=== PATIENT | male | born 1955 ===

== ENCOUNTER → 2016-07-14 | Outpatient (CLI) | payer BC ==
[~2016-07-14] MED LIST: IPRA1AER2 INH; LOVA20TA4 PO; OMEG10007 PO; OMEP20TA PO; PRD20 PO; PROP60CA5 PO; QVRINH40 INH
[2016-07-14 13:31] LABS: ALT/SGPT 42 U/L (12-78); AST/SGOT 24 U/L (15-37); BLOOD UREA NITROGEN 17 mg/dl (7-18); BUN/CREATININE RATIO 17.3 (10-20); CALCIUM 8.6 mg/dl (8.5-10.1); CARBON DIOXIDE 22 mmol/L (21-32); CHLORIDE 108 mmol/L (98-107); CHOLESTEROL 186 mg/dl (0-200); ESTIMATED AVERAGE GLUCOSE 128 mg/dl; GLUCOSE 108 mg/dl (70-99); HA1C FLAG Normal (Normal); POTASSIUM 3.8 mmol/L (3.5-5.1); SODIUM 141 mmol/L (136-145)
[2016-07-14 13:34] LABS: CHOLESTEROL/HDL RATIO 4.4; HDL CHOLESTEROL 42 mg/dl; LDL CHOLESTEROL CALCULATED 94 mg/dl; TRIGLYCERIDES 250 mg/dl (0-150); VERY LOW DENSITY LIPOPROT CALC 50 mg/dl
== END | disposition home or self-care (01) ==
LOC: C.LABMFLN 16:07
PROVIDERS: ATTEND Family Medicine
DX: E78.00 Pure hypercholesterolemia, unspecified (principal); R73.03 Prediabetes

== ENCOUNTER → 2016-11-12 | Outpatient (CLI) | payer BC ==
[2016-11-12 13:50] LABS: CALCIUM 8.7 mg/dl (8.5-10.1)
[2016-11-12 13:56] LABS: ALT/SGPT 41 U/L (12-78); BLOOD UREA NITROGEN 18 mg/dl (7-18); BUN/CREATININE RATIO 18.5 (10-20); CARBON DIOXIDE 26 mmol/L (21-32); CHLORIDE 105 mmol/L (98-107); CHOLESTEROL 176 mg/dl (0-200); CREATININE 0.99 mg/dl (0.60-1.40); GLUCOSE 108 mg/dl (70-99); POTASSIUM 3.5 mmol/L (3.5-5.1); SODIUM 141 mmol/L (136-145); TRIGLYCERIDES 239 mg/dl (0-150); VERY LOW DENSITY LIPOPROT CALC 48 mg/dl
[2016-11-12 13:59] LABS: ALB/GLOB RATIO 1.2 (0.9-2); ALKALINE PHOSPHATASE 62 U/L (45-117); AST/SGOT 23 U/L (15-37); CHOLESTEROL/HDL RATIO 4.2; HDL CHOLESTEROL 42 mg/dl; LDL CHOLESTEROL CALCULATED 86 mg/dl
[2016-11-12 14:17] LABS: ESTIMATED AVERAGE GLUCOSE 134 mg/dl; HA1C FLAG Normal (Normal)
== END | disposition home or self-care (01) ==
LOC: C.LABMFLN 06:56
PROVIDERS: ATTEND Family Medicine
DX: E78.00 Pure hypercholesterolemia, unspecified (principal); I10 Essential (primary) hypertension

== ENCOUNTER 2017-01-12 09:10 | Observation (INO) | payer BC, OTHER ==
[~2017-01-12] VITALS: Ht 200.7 cm; Wt 140.5 kg
[2017-01-12] VITALS (7 sets, daily range): BP systolic 116–130; BP diastolic 69–75; PULSE 80–85; TEMP 36.5–36.9; O2SAT 87–94; Ht 200.7 cm; Wt 140.5 kg
[2017-01-12] MEDS ORDERED: ALBUT/IPRATROP 3MG/0.5MG NEB 3 ML VIAL INH STA (09:31)
[2017-01-12] MEDS ORDERED: SODIUM CHLORIDE 0.9% 1000ML 1,000 ML IV STA (09:31)
[2017-01-12] MEDS ORDERED: PROP60CA5 PO (09:37)
[2017-01-12] MEDS ORDERED: OMEP20TA PO (09:37)
[2017-01-12] MEDS ORDERED: OMEG10007 PO (09:37)
[2017-01-12] MEDS ORDERED: LOVA20TA4 PO (09:37)
--- NOTE | 2017-01-12 09:40 | EMERGENCY ROOM VISIT NOTE ---
History First contact with patient: 09:25 Chief Complaint: COUGH Stated Complaint: COUGH,DIZZINESS,ABDOMINAL CRAMPS Nursing Triage Summary: c/o dry cough for over a month that is not getting better and today things look wavy History of Present Illness The patient is a 61 year old male who presents to the Emergency Room for evaluation of shortness of breath. 1 month worsening cough, shortness of breath and fatigue. Multiple steroids and antibiotics without any improvement. Has been following with PCP for this. Nothing seems to be making it better, time makes it worse. No trauma, injuries, falls. Notes yesterday left lower chest pressure which resolved. Also notes he developed headache yesterday and lightheadedness which he relates to working too hard and getting dehydrated. Associated with periodic wavy vision. No syncope, focal weakness. No blood thinner use. Recent right knee replacement this winter. No history of PEs nor DVTs. No leg swelling. States previous CXR which per his provider was negative. Review of Systems See HPI for pertinent positives & negatives. A total of 8 systems reviewed and were otherwise negative. Past Medical/Surgical History Medical Problems: (1) Acute respiratory failure Social History Smoking Status: Former Smoker Current/Historical Medications Scheduled Fish Oil ([place]-3), 1 CAP PO DAILY Lovastatin (Mevacor), 20 MG PO HS Omeprazole (Omeprazole), 40 MG PO DAILY Propranolol La (Inderal La), 60 MG PO DAILY Physical Exam Vital Signs Date Time Temp Pulse Resp B/P (MAP) Pulse Ox O2 Delivery O2 Flow Rate FiO2 01/12/17 14:30 82 16 115/81 93 Nasal Cannula 2.0 01/12/17 13:43 82 111/76 92 Nasal Cannula 2.0 01/12/17 13:35 94 Nasal Cannula 2.0 01/12/17 13:26 79 01/12/17 13:10 87 Room Air 01/12/17 12:49 87 Room Air 01/12/17 12:49 87 130/80 87 Room Air 01/12/17 11:52 84 16 90 Room Air 01/12/17 11:43 84 18 108/64 92 Room Air 01/12/17 10:52 89 18 130/73 93 Room Air 01/12/17 09:30 115 01/12/17 09:13 36.7 96 20 132/81 93 Room Air Physical Exam GENERAL: Patient is dehydrated appearing and in mild distress. HEENT: No acute trauma, normocephalic atraumatic, mucous membranes moist, no nasal congestion, no scleral icterus. NECK: No stridor, no adenopathy, no meningismus, trachea is midline. LUNGS: Mild dyspnea. Crackles throughout RLL. HEART: Tachy with sitting up. No murmurs, rubs, gallops appreciated. ABDOMEN: Soft, nontender, bowel sounds positive, no masses appreciated, no peritonitis. BACK: No midline tenderness, no CVA tenderness EXTREMITIES: Normal motion all extremities, no cyanosis, no edema. NEUROLOGIC: Alert and oriented, no acute motor or sensory deficits, no focal weakness, cranial nerves grossly intact. SKIN: No rash, no jaundice, no diaphoresis. Medical Decision & Procedures Laboratory Results 01/12/17 09:35 Red Blood Count 5.48, Mean Corpuscular Volume 86.9, Mean Corpuscular Hemoglobin 28.3, Mean Corpuscular Hemoglobin Concent 32.6, Mean Platelet Volume 10.3, Neutrophils (%) (Auto) 81.3, Lymphocytes (%) (Auto) 12.3, Monocytes (%) (Auto) 5.4, Eosinophils (%) (Auto) 0.6, Basophils (%) (Auto) 0.1, Neutrophils # (Auto) 14.97, Lymphocytes # (Auto) 2.27, Monocytes # (Auto) 1.00, Eosinophils # (Auto) 0.11, Basophils # (Auto) 0.02 01/12/17 09:35 Test 01/12/17 09:35 01/12/17 13:25 White Blood Count 18.43 K/uL (4.8-10.8) Red Blood Count 5.48 M/uL (4.7-6.1) Hemoglobin 15.5 g/dL (14.0-18.0) Hematocrit 47.6 % (42-52) Mean Corpuscular Volume 86.9 fL (80-100) Mean Corpuscular Hemoglobin 28.3 pg (25-34) Mean Corpuscular Hemoglobin Concent 32.6 g/dl (32-36) Platelet Count 244 K/uL (130-400) Mean Platelet Volume 10.3 fL (7.4-10.4) Neutrophils (%) (Auto) 81.3 % Lymphocytes (%) (Auto) 12.3 % Monocytes (%) (Auto) 5.4 % Eosinophils (%) (Auto) 0.6 % Basophils (%) (Auto) 0.1 % Neutrophils # (Auto) 14.97 K/uL (1.4-6.5) Lymphocytes # (Auto) 2.27 K/uL (1.2-3.4) Monocytes # (Auto) 1.00 K/uL (0.11-0.59) Eosinophils # (Auto) 0.11 K/uL (0-0.5) Basophils # (Auto) 0.02 K/uL (0-0.2) RDW Standard Deviation 44.6 fL (36.4-46.3) RDW Coefficient of Variation 14.0 % (11.5-14.5) Immature Granulocyte % (Auto) 0.3 % Immature Granulocyte # (Auto) 0.06 K/uL (0.00-0.02) D-Dimer 1210 ug/L FEU (0-500) Anion Gap 6.0 mmol/L (3-11) Est Creatinine Clear Calc Drug Dose 128.6 ml/min Estimated GFR () 96.7 Estimated GFR (Non- 83.5 BUN/Creatinine Ratio 15.8 (10-20) Calcium Level 9.0 mg/dl (8.5-10.1) Magnesium Level 2.1 mg/dl (1.8-2.4) Total Creatine Kinase 112 U/L (39-308) Creatine Kinase MB 0.8 ng/ml (0.5-3.6) Creatine Kinase MB Ratio 0.7 (0-3.0) Troponin I < 0.015 ng/ml (0-0.045) Pro-B-Type Natriuretic Peptide 23 pg/ml (0-900) Chemistry Specimen Hemolysis Lyme Disease IgG Antibody NEG (NEG) Lyme Disease IgM Antibody NEG (NEG) Medications Administered Medications (Trade) Dose Ordered Sig/Geremias Route Start Time Stop Time Status Last Admin Dose Admin Sodium Chloride 1,000 ml @ 999 mls/hr Q1H1M STAT IV 01/12/17 09:31 01/12/17 10:31 DC 01/12/17 09:44 999 MLS/HR Albuterol/ Ipratropium (Duoneb) 3 ml NOW STAT INH 01/12/17 09:31 01/12/17 09:32 DC 01/12/17 09:48 3 ML Hydromorphone HCl (Dilaudid Inj) 1 mg NOW STAT IV 01/12/17 10:04 01/12/17 10:05 DC 01/12/17 10:08 1 MG Albuterol/ Ipratropium (Duoneb) 12 ml ONE ONCE INH 01/12/17 11:30 01/12/17 11:31 DC 01/12/17 11:46 12 ML Methylprednisolone Sodium Succinate (Solu-Medrol IV) 125 mg NOW STAT IV 01/12/17 11:28 01/12/17 11:30 DC 01/12/17 11:41 125 MG Medical Decision Differential: Infectious, Reactive Airway Disease, Pneumonia, Pneumothorax, COPD , CHF, ACS, Pulmonary Embolism, MSK, GI, Dissection, amongst other etiologies entertained. Pleasant 61 yr old male with HTN, DLP, GERD though no lung nor CAD history arrives with several weeks respiratory issues and generalized fatigue. Improved with initial neb though symptoms starting to return then second prolonged neb. IV steroids given. EKG without ischemia. CXR clear. Dimer positive. CT PE done given initial tachy, shob and elevated dimer resulting in negative CT PE study fortunately. Attempted to ambulate though because dyspneic , hypoxic and diaphoretic. No chest pain with this. With him becoming hypoxic I do not feel that he is capable of continued outpatient work-up (especially given fact he's had two rounds steroids and Zpack and Levaquin). Reviewed with patient and and they are agreeable to inpatient work-up thus hospitalist consulted. Medication Reconcilliation Current Medication List: was personally reviewed by me Blood Pressure Screening Patient's blood pressure: Normal blood pressure Impression Primary Impression: Shortness of breath Additional Impressions: Hypoxia Reactive airway disease Departure Information Referrals Azar Khanna M.D. (PCP) Patient Instructions My [facility] Problem Qualifiers
[2017-01-12 09:47] LABS: BASO % 0.1 %; BASO ABS # 0.02 K/uL (0-0.2); COMPLETE YES; EOS % 0.6 %; HEMATOCRIT 47.6 % (42-52); IG% 0.3 %; LYMPH % 12.3 %; LYMPH ABS # 2.27 K/uL (1.2-3.4); MEAN CELL VOLUME 86.9 fL (80-100); MEAN CORPUSCULAR HEMOGLOBIN 28.3 pg (25-34); MEAN CORPUSCULAR HGB CONC 32.6 g/dl (32-36); MEAN PLATELET VOLUME 10.3 fL (7.4-10.4); MONO % 5.4 %; NEUT % 81.3 %; PLATELET COUNT 244 K/uL (130-400); RED BLOOD COUNT 5.48 M/uL (4.7-6.1); WHITE BLOOD COUNT 18.43 K/uL (4.8-10.8)
[2017-01-12] MEDS ORDERED: HYDROmorphone INJ 1 MG/ML SYR IV STA (10:04)
[2017-01-12 10:09] LABS: BLOOD UREA NITROGEN 16 mg/dl (7-18); BUN/CREATININE RATIO 15.8 (10-20); CARBON DIOXIDE 27 mmol/L (21-32); CHLORIDE 106 mmol/L (98-107); CREATININE 0.98 mg/dl (0.60-1.40); GLUCOSE 115 mg/dl (70-99); MAGNESIUM 2.1 mg/dl (1.8-2.4); SODIUM 139 mmol/L (136-145)
--- NOTE | 2017-01-12 10:20 | DIAGNOSTIC IMAGING REPORT ---
SINGLE VIEW CHEST CLINICAL HISTORY: Atypical chest pain. FINDINGS: An AP, portable, upright chest radiograph is obtained. No prior studies are available for comparison at the time of dictation. The examination is degraded by portable technique and patient rotation. The cardiomediastinal silhouette is unremarkable. There is mild elevation of the right hemidiaphragm and bibasilar atelectasis. The lungs and pleural spaces are otherwise clear. No pneumothorax is seen. The bony thorax is grossly intact. IMPRESSION: No acute cardiopulmonary abnormality. Electronically signed by: Azar Xie M.D. 01/12/2017 10:19 AM Dictated Date/Time: 01/12/2017 10:18 AM
[2017-01-12 10:21] LABS: CKMB/CK RATIO 0.7 (0-3.0)
[2017-01-12] MEDS ORDERED: OPTIRAY 320 IV PRN (10:45)
[2017-01-12 10:53] LABS: LYME DISEASE AB IGG NEG (NEG); LYME DISEASE AB IGM NEG (NEG)
--- NOTE | 2017-01-12 10:54 | DIAGNOSTIC IMAGING REPORT ---
CT HEAD WITHOUT CONTRAST (CT) CLINICAL HISTORY: Sudden onset severe headache. Dizziness. COMPARISON STUDY: No previous studies for comparison. TECHNIQUE: Axial CT of the brain is performed from the vertex to the skull base. IV contrast was not administered for this examination. A dose lowering technique was utilized adhering to the principles of ALARA. CT DOSE: 1373.74 mGy.cm FINDINGS: No intra or extra-axial mass lesions are visualized. There is no CT evidence of acute cortical infarction. There is no evidence of midline shift. There is no acute hemorrhage. No calvarial fractures are visualized. There are minor white matter hypodensities likely on a small vessel basis. There is no evidence of pathologic ventricular dilatation. There is no evidence of acute sinusitis. There are chronic sclerotic changes involving the left mastoid. There is mild prominence of the basilar tip. IMPRESSION: 1. Minor nonspecific prominence of the basilar tip. No acute intracranial findings. Electronically signed by: Nigel Ritchie M.D. 01/12/2017 10:53 AM Dictated Date/Time: 01/12/2017 10:50 AM
--- NOTE | 2017-01-12 11:07 | DIAGNOSTIC IMAGING REPORT ---
CHEST CTA for PULMONARY ARTERIES CT DOSE: HISTORY: Atypical chest pain. Cough. TECHNIQUE: Multiaxial CT images of the chest were performed following the intravenous administration of contrast to evaluate the pulmonary arteries. Maximal intensity projection images were also obtained. A dose lowering technique was utilized adhering to the principles of ALARA. COMPARISON STUDY: Chest 01/12/2017. FINDINGS: Normal caliber thoracic aorta with no evidence for dissection. The majority of the segmental and subsegmental pulmonary arteries are suboptimally assessed due to the respiratory motion artifact. The main and lobar pulmonary arteries show no filling defects to suggest pulmonary embolus. No definite filling defects identified within the visualized segmental and subsegmental pulmonary arteries. No mediastinal or hilar lymphadenopathy. No pleural or pericardial effusions. Hepatic steatosis. Low lung volumes. The central airways are patent. No pneumothorax. A few bibasilar linear and patchy densities. The upper lung zones are clear. IMPRESSION: 1. No evidence for pulmonary embolus with limitations as described above. 2. A few bibasilar linear and patchy densities. This favors subsegmental atelectasis. 3. Hepatic steatosis. Electronically signed by: Vipul Lamb M.D. 01/12/2017 11:06 AM Dictated Date/Time: 01/12/2017 10:58 AM
[2017-01-12] MEDS ORDERED: METHYLPREDNISOLONE 125 MG VIAL IV STA (11:28)
[2017-01-12] MEDS ORDERED: ALBUT/IPRATROP 3MG/0.5MG NEB 3 ML VIAL INH ONE (11:30)
--- NOTE | 2017-01-12 13:57 | History and Physical ---
History & Physical Date & Time of Service: Jan 12, 2017 at 13:47 Chief Complaint: Cough,Dizziness,Abdominal Cramps Primary Care Physician: Azar Khanna M.D. History of Present Illness Source: patient, family, clinic records This patient is a pleasant 61-year-old male that presents to emergency department complaining of shortness of breath and a nonproductive cough that has been going on for at least 3 weeks. The patient has seen his primary care provider on 2 separate occasions. He finished a Z-Josh and also a course of Levaquin in addition to prednisone with mild improvement. His symptoms return after he finished the treatment. He denies any known pulmonary disease. He does note a dull chest pain in the middle of his chest. It has been constant since the cough has been going on. He denies any fever or chills. No sick contacts. 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 He received 2 nebulizer treatments in the emergency department. He has had fairly good relief. Past Medical/Surgical History Hypertension Hyperlipidemia GERD Obesity Family History Father of lung cancer and cirrhosis Mother also of lung cancer Social History Smoking Status: Former Smoker (quit smoking 40 years ago) Alcohol Use: none Drug Use: none Marital Status: Housing status: lives with significant other Occupational Status: employed Immunizations History of Influenza Vaccine: Unknown History of Tetanus Vaccine?: Unknown History of Pneumococcal: No History of Hepatitis B Vaccine: Unknown Multi-Drug Resistant Organisms History of MDRO: No Allergies Coded Allergies: Enoxaparin (Verified Adverse Reaction, Intermediate, "BROKE OUT IN SWEAT" , 01/12/17) Home Medications Scheduled Fish Oil ([place]-3), 1 CAP PO DAILY Lovastatin (Mevacor), 20 MG PO HS Omeprazole (Omeprazole), 40 MG PO DAILY Propranolol La (Inderal La), 60 MG PO DAILY Review of Systems 10 system review performed and negative unless noted in HPI or below Physical Exam Vital Signs Date Time Temp Pulse Resp B/P (MAP) Pulse Ox O2 Delivery O2 Flow Rate FiO2 01/12/17 13:43 82 111/76 92 Nasal Cannula 2.0 01/12/17 13:26 79 01/12/17 13:10 87 Room Air 01/12/17 12:49 87 Room Air 01/12/17 12:49 87 130/80 87 Room Air 01/12/17 11:52 84 16 90 Room Air 01/12/17 11:43 84 18 108/64 92 Room Air 01/12/17 10:52 89 18 130/73 93 Room Air 01/12/17 09:30 115 01/12/17 09:13 36.7 96 20 132/81 93 Room Air General Appearance: no apparent distress Head: normocephalic Eyes: EOMI Neck: no JVD Respiratory/Chest: + pertinent finding (faint expiratory wheeze noted. No crackles at the bases.) Cardiovascular: regular rate, rhythm, no murmur, + pertinent finding (no tenderness to palpation over the thorax.) Abdomen/GI: normal bowel sounds, non tender, soft Extremities/Musculoskelatal: no calf tenderness, no pedal edema Neurologic/Psych: no motor/sensory deficits, oriented x 3 Skin: warm/dry Diagnostics Laboratory Results Results Past 24 Hours Test 01/12/17 09:35 01/12/17 13:25 Range/Units White Blood Count 18.43 4.8-10.8 K/uL Red Blood Count 5.48 4.7-6.1 M/uL Hemoglobin 15.5 14.0-18.0 g/dL Hematocrit 47.6 42-52 % Mean Corpuscular Volume 86.9 80-100 fL Mean Corpuscular Hemoglobin 28.3 25-34 pg Mean Corpuscular Hemoglobin Concent 32.6 32-36 g/dl Platelet Count 244 130-400 K/uL Mean Platelet Volume 10.3 7.4-10.4 fL Neutrophils (%) (Auto) 81.3 % Lymphocytes (%) (Auto) 12.3 % Monocytes (%) (Auto) 5.4 % Eosinophils (%) (Auto) 0.6 % Basophils (%) (Auto) 0.1 % Neutrophils # (Auto) 14.97 1.4-6.5 K/uL Lymphocytes # (Auto) 2.27 1.2-3.4 K/uL Monocytes # (Auto) 1.00 0.11-0.59 K/uL Eosinophils # (Auto) 0.11 0-0.5 K/uL Basophils # (Auto) 0.02 0-0.2 K/uL RDW Standard Deviation 44.6 36.4-46.3 fL RDW Coefficient of Variation 14.0 11.5-14.5 % Immature Granulocyte % (Auto) 0.3 % Immature Granulocyte # (Auto) 0.06 0.00-0.02 K/uL D-Dimer 1210 0-500 ug/L FEU Sodium Level 139 136-145 mmol/L Potassium Level 4.0 3.5-5.1 mmol/L Chloride Level 106 98-107 mmol/L Carbon Dioxide Level 27 21-32 mmol/L Anion Gap 6.0 3-11 mmol/L Blood Urea Nitrogen 16 7-18 mg/dl Creatinine 0.98 0.60-1.40 mg/dl Est Creatinine Clear Calc Drug Dose 128.6 ml/min Estimated GFR () 96.7 Estimated GFR (Non- 83.5 BUN/Creatinine Ratio 15.8 10-20 Random Glucose 115 70-99 mg/dl Calcium Level 9.0 8.5-10.1 mg/dl Magnesium Level 2.1 1.8-2.4 mg/dl Total Creatine Kinase 112 39-308 U/L Creatine Kinase MB 0.8 0.5-3.6 ng/ml Creatine Kinase MB Ratio 0.7 0-3.0 Troponin I < 0.015 0-0.045 ng/ml Pro-B-Type Natriuretic Peptide 23 0-900 pg/ml Chemistry Specimen Hemolysis Lyme Disease IgG Antibody NEG NEG Lyme Disease IgM Antibody NEG NEG Diagnostic Radiology CT HEAD WITHOUT CONTRAST (CT) CLINICAL HISTORY: Sudden onset severe headache. Dizziness. COMPARISON STUDY: No previous studies for comparison. TECHNIQUE: Axial CT of the brain is performed from the vertex to the skull base. IV contrast was not administered for this examination. A dose lowering technique was utilized adhering to the principles of ALARA. CT DOSE: 1373.74 mGy.cm FINDINGS: No intra or extra-axial mass lesions are visualized. There is no CT evidence of acute cortical infarction. There is no evidence of midline shift. There is no acute hemorrhage. No calvarial fractures are visualized. There are minor white matter hypodensities likely on a small vessel basis. There is no evidence of pathologic ventricular dilatation. There is no evidence of acute sinusitis. There are chronic sclerotic changes involving the left mastoid. There is mild prominence of the basilar tip. IMPRESSION: 1. Minor nonspecific prominence of the basilar tip. No acute intracranial findings. Electronically signed by: Nigel Ritchie M.D. 01/12/2017 10:53 AM Dictated Date/Time: 01/12/2017 10:50 AM The status of this report is Signed. Draft = Not yet reviewed or approved by Radiologist. Signed = Reviewed and approved by Radiologist. <AttendingPhy></AttendingPhy> <FamilyPhy>Azar Khanna M.D.</FamilyPhy> < PrimaryPhy>Azar Khanna M.D.</PrimaryPhy> <UnitNumber>[id number]</UnitNumber> < VisitNumber>[id number]</VisitNumber> <PatientName>CLARISSA WALLACE</ PatientName> <DateOfBirth>1955</DateOfBirth> <Location>[facility]</Location> < ServiceDate>01/12/17</ServiceDate> <MNE>ESINDI</MNE> <OrderingPhy>Marcellus Bynum M.D.</OrderingPhy> <OrderingPhyMNE CHEST CTA for PULMONARY ARTERIES CT DOSE: HISTORY: Atypical chest pain. Cough. TECHNIQUE: Multiaxial CT images of the chest were performed following the intravenous administration of contrast to evaluate the pulmonary arteries. Maximal intensity projection images were also obtained. A dose lowering technique was utilized adhering to the principles of ALARA. COMPARISON STUDY: Chest 01/12/2017. FINDINGS: Normal caliber thoracic aorta with no evidence for dissection. The majority of the segmental and subsegmental pulmonary arteries are suboptimally assessed due to the respiratory motion artifact. The main and lobar pulmonary arteries show no filling defects to suggest pulmonary embolus. No definite filling defects identified within the visualized segmental and subsegmental pulmonary arteries. No mediastinal or hilar lymphadenopathy. No pleural or pericardial effusions. Hepatic steatosis. Low lung volumes. The central airways are patent. No pneumothorax. A few bibasilar linear and patchy densities. The upper lung zones are clear. IMPRESSION: 1. No evidence for pulmonary embolus with limitations as described above. 2. A few bibasilar linear and patchy densities. This favors subsegmental atelectasis. 3. Hepatic steatosis. Electronically signed by: Vipul Lamb M.D. 01/12/2017 11:06 AM Dictated Date/Time: 01/12/2017 10:58 AM The status of this report is Signed. Draft = Not yet reviewed or approved by Radiologist. Signed = Reviewed and approved by Radiologist. EKG Normal sinus rhythm [address] depressions noted in the lateral leads No prior for comparison Impression Assessment and Plan 61-year-old male presented to the ED with complaints of a nonproductive cough, shortness of breath is failed outpatient treatment. This is likely reactive airway disease secondary to environmental exposures at work, however I cannot completely rule out underlying COPD given a remote smoking history. Acute respiratory failure likely secondary to reactive airway disease -Observ in telemetry -Solu-Medrol 60 mg IV every 8 hour -Duo nebs QID and q2 prn -consider pulmonary consult Atypical chest pain -monitor on tele -daily EKG -cardiac enzymes x 3 -if symptoms worsen/abnormal labs, consider stress test. (pt had normal stress , but many years ago) -should probably be started on ASA 81mg daily if not contraindicated HTN -Continue propranolol extended release 60 mg daily Hyperlipidemia -Continue statin 20 mg daily DVT prophylaxis -allergic to lovenox-->contraindicated -TEDS, SCDs CODE STATUS -LEVEL I FULL CODE Attending Addendum: I have physically seen and examined this patient, have directed the physician assistants medical activities, and agree with the H&P as noted above with the following exceptions: NONE The patient is awake, well-developed and adequately nourished, alert and oriented 3, normocephalic and atraumatic, lying in bed and in no acute distress. HEENT--PERRL, EOMI, mucous membranes and oropharynx dry. Neck--supple, no JVD or bruits, thyroid normal, trachea midline, no adenopathy. Heart--normal S1 and S2, no extra beats, no murmurs, rubs or gallops. Lungs--few scattered wheezes bilaterally, but decreased breath sounds throughout , no respiratory distress, no accessory muscle use. Abdomen--normal bowel sounds and soft, nontender and nondistended, no hernias or masses, no organomegaly, and obese. Extremities--no cyanosis, clubbing or edema. There are good distal pulses b/l. Dermatologic--normal skin turgor, normal color, warm and dry, no abnormal lymph nodes, no rash. Neurologic--cranial nerves II through XII grossly intact, motor and sensory examination normal. Rheumatologic--normal range of motion, nontender, muscles and joints. Psychiatric--normal affect. Assessment and Plan: 1. Acute respiratory failure with hypoxia secondary to reactive airways disease likely on the basis of work exposure to dust and possibly other inhalants--the patient be admitted to the telemetry unit for close oxygen monitoriing. The patient will be admitted to telemetry for serial cardiac enzymes, cardiac rhythm monitoring and a 2-D echocardiogram with Dopplers. Place on Solu-Medrol 60 mg IV every 8 hours. Duo nebs 4 times a day while awake and every 2 hours when necessary. Discussed modification of workplace environment. 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 Start aspirin 81 mg by mouth daily. He is presently on propranolol extended release 60 mg by mouth daily, but may need to be changed to a more selective beta jaylin such as metoprolol tartrate. Level of Care Telemetry Advanced Directives Existing Advance Directive: No Existing Living Will: No Existing Power of Corporate Tax Manager: No Resuscitation Status FULL RESUSCITATION VTE Prophylaxis VTE Risk Assessment Done? Y/N: Yes Risk Level: Low Given or contraindicated: Enoxaparin (Lovenox)SQ Social Service Consult None Apply
[2017-01-12] MEDS ORDERED: ONDANSETRON INJ 2 MG/ML 2 ML VIAL IV PRN (14:15)
[2017-01-12] MEDS ORDERED: ALUMINUM/MAGNESIUM/SIMETH (MAALOX MAX) 30 ML UDC PO PRN (14:15)
[2017-01-12] MEDS ORDERED: ACETAMINOPHEN 325 MG TAB PO PRN (14:15)
[2017-01-12] MEDS ORDERED: IV FLUIDS COMPLETED PRN (14:30)
[2017-01-12] MEDS ORDERED: PNEUMOCOCCAL ADMINISTRATION CHARGE ONE (14:45)
[2017-01-12] MEDS ORDERED: PNEUMOCOCCAL POLYSACCHARIDES 25 MCG/0.5 ML VIAL/SYR IM. ONE (14:45)
[2017-01-12] MEDS: ALBUT/IPRATROP 3MG/0.5MG NEB 3 ML VIAL INH SCH ×2 (16:00→19:11)
[2017-01-12 21:03] LABS: CKMB/CK RATIO 0.8 (0-3.0)
[2017-01-12] MEDS: METHYLPREDNISOLONE IV 60 MG in SYRINGE 0 ML IV SCH (21:14)
[2017-01-12] MEDS: LOVASTATIN 20 MG TAB PO SCH (21:14)
[2017-01-13] VITALS (17 sets, daily range): BP systolic 113–143; BP diastolic 67–88; PULSE 77–114; TEMP 36.3–36.7; O2SAT 91–95
[2017-01-13 04:30] LABS: BASO % 0.1 %; BASO ABS # 0.01 K/uL (0-0.2); COMPLETE YES; HEMATOCRIT 43.9 % (42-52); IG% 0.4 %; LYMPH % 10.9 %; LYMPH ABS # 1.85 K/uL (1.2-3.4); MEAN CELL VOLUME 87.1 fL (80-100); MEAN CORPUSCULAR HEMOGLOBIN 29.8 pg (25-34); MEAN CORPUSCULAR HGB CONC 34.2 g/dl (32-36); MEAN PLATELET VOLUME 10.2 fL (7.4-10.4); MONO % 2.3 %; NEUT % 86.3 %; PLATELET COUNT 234 K/uL (130-400); RED BLOOD COUNT 5.04 M/uL (4.7-6.1)
[2017-01-13 05:15] LABS: BLOOD UREA NITROGEN 19 mg/dl (7-18); BUN/CREATININE RATIO 17.2 (10-20); CALCIUM 8.8 mg/dl (8.5-10.1); CARBON DIOXIDE 27 mmol/L (21-32); CHLORIDE 105 mmol/L (98-107); GLUCOSE 201 mg/dl (70-99); POTASSIUM 4.2 mmol/L (3.5-5.1); SODIUM 138 mmol/L (136-145)
[2017-01-13 05:20] LABS: CKMB/CK RATIO 0.8 (0-3.0)
[2017-01-13] MEDS: METHYLPREDNISOLONE IV 60 MG in SYRINGE 0 ML IV SCH ×2 (05:33→13:26)
[2017-01-13] MEDS: ALBUT/IPRATROP 3MG/0.5MG NEB 3 ML VIAL INH SCH ×4 (07:19→20:54)
[2017-01-13] MEDS: PANTOprazole SOD 40 MG TAB PO SCH (08:48)
[2017-01-13] MEDS: PROPRANOLOL HCL 60 MG LA CAP PO SCH (08:49)
--- NOTE | 2017-01-13 14:40 | Progress Note ---
Subjective Date of Service: Jan 13, 2017. Subjective Pt evaluation today including: conversation w/ patient, conversation w/ family , physical exam, chart review, lab review, review of studies, conversation w/ healthcare network consultant, review of inpatient medication list Sitting up in chair, mild cough, no more sob, on NC O2, He and his consent above environmental allergen caused his acute respirator distress Problem List Medical Problems: (1) Hypoxia Status: Acute (2) Reactive airway disease Status: Acute (3) Shortness of breath Status: Acute Review of Systems Constitutional: No fever, No chills, No sweats, No weight loss, No weakness, No fatigue, No problem reported Eyes: No worsening of vision, No eye pain, No redness, No discharge, No diplopia ENT: No hearing loss, No unusual epistaxis, No nasal symptoms, No sore throat, No tinnitus, No dental problems, No trouble swallowing Respiratory: + cough, No sputum, No wheezing, No shortness of breath, No dyspnea on exertion, No dyspnea at rest, No hemoptysis Cardiac: No chest pain, No orthopnea, No PND, No edema, No claudication, No palpitations Abdomen: No pain, No nausea, No vomiting, No diarrhea, No constipation Musculoskeletal: No joint pain, No muscle pain, No swelling, No calf pain Male : No dysuria, No urinary frequency, No incontinence, No nocturia more than once/night, No slowing stream, No hematuria Neurologic: No memory loss, No paralysis, No weakness, No numbness/tingling, No vertigo, No balance problems Psychiatric: No depression symptoms, No anhedonism, No anxiety, No insomnia, No substance abuse Heme: No abnormal bleeding/bruising, No clotting problems, No swollen lymph nodes, No night sweats Endo: No fatigue, No excessive thirst, No excessive urination Skin: No rash, No itch, No new/changing skin lesions, No color change, No bleeding Objective Vital Signs Date Time Temp Pulse Resp B/P (MAP) Pulse Ox O2 Delivery O2 Flow Rate FiO2 01/13/17 12:00 91 Nasal Cannula 2.0 01/13/17 09:00 98 19 01/13/17 08:46 36.7 103 14 143/86 (105) 95 Nasal Cannula 2.0 01/13/17 08:30 94 Nasal Cannula 2.0 01/13/17 08:00 114 26 8/3/17 07:18 96 16 93 Nasal Cannula 2.0 01/13/17 07:00 98 17 01/13/17 04:00 92 Nasal Cannula 2.0 01/13/17 04:00 36.7 100 20 126/79 (95) 92 Nasal Cannula 2.0 01/12/17 23:59 93 Nasal Cannula 2.0 01/12/17 23:59 36.7 85 20 118/72 (87) 93 Nasal Cannula 2.0 01/12/17 20:00 36.5 84 17 116/69 (85) 92 Nasal Cannula 2.0 01/12/17 20:00 92 Nasal Cannula 2.0 01/12/17 19:11 80 16 90 Nasal Cannula 2.0 01/12/17 16:00 94 Nasal Cannula 2.0 01/12/17 15:22 36.9 81 22 130/75 (93) 92 Nasal Cannula 2.0 Physical Exam General Appearance: WD/WN, no apparent distress, + obese Eyes: normal inspection, PERRL, EOMI, sclerae normal ENT: normal ENT inspection, hearing grossly normal, pharynx normal Neck: supple, no adenopathy, thyroid normal, no JVD, no carotid bruits, trachea midline Respiratory/Chest: chest non-tender, normal breath sounds, no respiratory distress, no accessory muscle use, + decreased breath sounds Cardiovascular: regular rate, rhythm, no edema, no gallop, no JVD, no murmur Abdomen: normal bowel sounds, non tender, soft, no organomegaly, no pulsatile mass Extremities: normal range of motion, non-tender, normal inspection, no pedal edema, no calf tenderness, normal capillary refill, pelvis stable Neurologic/Psychiatric: asp developer II-XII nml as tested, no motor/sensory deficits, alert, normal mood/affect, oriented x 3 Skin: normal color, warm/dry, no rash Lymphatic: no adenopathy Laboratory Results Last 24 Hours Test 01/12/17 20:05 01/13/17 03:48 Total Creatine Kinase 84 U/L 80 U/L Creatine Kinase MB 0.7 ng/ml 0.6 ng/ml Creatine Kinase MB Ratio 0.8 0.8 Troponin I < 0.015 ng/ml < 0.015 ng/ml Hepatitis C Antibody Screen NEG White Blood Count 16.90 K/uL Red Blood Count 5.04 M/uL Hemoglobin 15.0 g/dL Hematocrit 43.9 % Mean Corpuscular Volume 87.1 fL Mean Corpuscular Hemoglobin 29.8 pg Mean Corpuscular Hemoglobin Concent 34.2 g/dl Platelet Count 234 K/uL Mean Platelet Volume 10.2 fL Neutrophils (%) (Auto) 86.3 % Lymphocytes (%) (Auto) 10.9 % Monocytes (%) (Auto) 2.3 % Eosinophils (%) (Auto) 0.0 % Basophils (%) (Auto) 0.1 % Neutrophils # (Auto) 14.58 K/uL Lymphocytes # (Auto) 1.85 K/uL Monocytes # (Auto) 0.39 K/uL Eosinophils # (Auto) 0.00 K/uL Basophils # (Auto) 0.01 K/uL RDW Standard Deviation 44.6 fL RDW Coefficient of Variation 14.0 % Immature Granulocyte % (Auto) 0.4 % Immature Granulocyte # (Auto) 0.07 K/uL Sodium Level 138 mmol/L Potassium Level 4.2 mmol/L Chloride Level 105 mmol/L Carbon Dioxide Level 27 mmol/L Anion Gap 6.0 mmol/L Blood Urea Nitrogen 19 mg/dl Creatinine 1.10 mg/dl Est Creatinine Clear Calc Drug Dose 114.6 ml/min Estimated GFR () 84.1 Estimated GFR (Non- 72.6 BUN/Creatinine Ratio 17.2 Random Glucose 201 mg/dl Calcium Level 8.8 mg/dl Assessment and Plan 61-year-old male admitted to hospital because of the problem in below on 2016 Acute respiratory failure with hypoxia secondary to reactive airways disease likely on the basis of work exposure to dust and possibly other inhalants Discussed modification of workplace environment. 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 Remote history of smoking did report has snoring as needed need to rule out obstructive sleep apnea For now we will taper down Solu-Medrol, continue nebulizer treatment Request pulmonology consult, possible need to arrange pulmonary function test and sleep study as outpatient, all may be needed and internet developer referral for antigen studies Taper oxygen if possible Check TSH 2-D echocardiogram with Dopplers. Start aspirin 81 mg by mouth daily. Hypertension , is presently on propranolol extended release 60 mg by mouth daily , but may need to be changed to a more selective beta jaylin such as metoprolol tartrate Dyslipidemia, continue current medication GI prophylaxis DVT prophylaxis, SCD, no heparin per duct because of allergic to Lovenox Continued [facility] stay due to: multiple IV medications needed Discharge planning: home
[2017-01-13] MEDS: LOVASTATIN 20 MG TAB PO SCH (21:24)
[2017-01-13] MEDS: METHYLPREDNISOLONE IV 40 MG in SYRINGE 0 ML IV SCH (21:36)
[2017-01-14] VITALS (8 sets, daily range): BP systolic 121–135; BP diastolic 74–84; PULSE 65–87; TEMP 36.4–36.7; O2SAT 90–93
[2017-01-14 05:47] LABS: BASO ABS # 0.01 K/uL (0-0.2); COMPLETE YES; HEMATOCRIT 41.6 % (42-52); IG% 0.5 %; LYMPH % 8.7 %; LYMPH ABS # 1.78 K/uL (1.2-3.4); MEAN CELL VOLUME 87.6 fL (80-100); MEAN CORPUSCULAR HEMOGLOBIN 30.1 pg (25-34); MEAN CORPUSCULAR HGB CONC 34.4 g/dl (32-36); MEAN PLATELET VOLUME 10.5 fL (7.4-10.4); MONO % 6.9 %; NEUT % 83.9 %; PLATELET COUNT 262 K/uL (130-400); RED BLOOD COUNT 4.75 M/uL (4.7-6.1); WHITE BLOOD COUNT 20.41 K/uL (4.8-10.8)
[2017-01-14] MEDS: METHYLPREDNISOLONE IV 40 MG in SYRINGE 0 ML IV SCH (06:13)
[2017-01-14 06:17] LABS: BUN/CREATININE RATIO 25.5 (10-20); CALCIUM 8.7 mg/dl (8.5-10.1); CREATININE 1.1 mg/dl (0.60-1.40); MAGNESIUM 2.4 mg/dl (1.8-2.4); POTASSIUM 4.1 mmol/L (3.5-5.1)
[2017-01-14] MEDS: ALBUT/IPRATROP 3MG/0.5MG NEB 3 ML VIAL INH SCH ×3 (07:15→15:31)
[2017-01-14] MEDS: PANTOprazole SOD 40 MG TAB PO SCH (08:30)
[2017-01-14] MEDS: PROPRANOLOL HCL 60 MG LA CAP PO SCH (08:31)
--- NOTE | 2017-01-14 12:00 | ECHOCARDIOGRAM REPORT ---
*NOTICE TO RECEIVING DEMOCRAT AGENCY This information is strictly Confidential and protected under [place] law. [place] law prohibits you from making any further disclosure of this information unless further disclosure is expressly permitted by the written consent of the person to whom it pertains or is authorized by law. A general authorization for the release of medical or other information is not sufficient for this purpose. Hospital accepts no responsibility if the information is made available to any other person, INCLUDING THE PATIENT. Interpretation Summary * Name: CLARISSA WALLACE Study Date: 01/14/2017 06:37 AM BP: 121/74 mmHg * Patient Location: C.2T\S\S230\S\1 HR: 78 * : 1955 (M/d/yyy) Gender: Male Height: 79 in * Age: 61 yrs Ethnicity: DC Weight: 310 lb * Ordering Physician: Marcellus Morfin * Referring Physician: Self, Referred * Performed By: Daria Gresham [facility] * * Reason For Study: DIFFICULTY BREATHING * BSA: 2.7 m2 * -- Conclusions -- * 1. Severely technically limited despite use of definity ultrasound contrast. * 2. Borderline dilated LV with grossly normal LV function. LVEF 50-55%. Cannot exclude regional wall motion abnormalities. * 3. Normal RV size and function. * 4. No apparent significant valvular pathology. * 5. No prior studies for comparison. Procedure Details * A complete two-dimensional transthoracic echocardiogram was performed (2D, M-mode, Doppler and color flow Doppler). * The study was technically difficult. * A contrast injection of Definity was performed to improve assessment of LV function. * Contrast was injected into an intravenous site in the left arm. * One vial of Definity ultrasound contrast was diluted in normal saline to a total volume of 10 ml. A total of '3' ml of solution was administered during imaging. * Lot # [id number] of Definity utilized for procedure. * Expiration date JAN 28. * The attending nurse who injected the contrast agent was EAMON BERRIOS, RN. Left Ventricle * The left ventricle is borderline dilated. * The left ventricular ejection fraction is grossly normal. * Ejection Fraction = 50-55%. * Regional wall motion abnormalities cannot be excluded due to limited visualization. Right Ventricle * The right ventricle is grossly normal size. * The right ventricular systolic function is normal as assessed by tricuspid annular plane systolic excursion (TAPSE) (normal >1.5 cm). Atria * The left atrium is mildly dilated. * The right atrium is mildly dilated. * No ASD detected; PFO is not assessed. Mitral Valve * The mitral valve is grossly normal. * There is no mitral valve stenosis. Tricuspid Valve * The tricuspid valve is not well visualized. * The tricuspid valve is not well visualized, but is grossly normal. * Significant tricuspid regurgitation is absent. Aortic Valve * The aortic valve opens well. * No hemodynamically significant valvular aortic stenosis. * There is no significant aortic regurgitation. Pulmonic Valve * The pulmonary valve is inadequately visualized, but the Doppler data is adequate for interpretation. * Pulmonic stenosis is absent. * There is no significant pulmonary regurgitation. Pericardium/Pleural * There is no pericardial effusion. MMode 2D Measurements and Calculations IVSd 1.8 cm IVSs 1.8 cm LVIDd 5.8 cm LVIDs 5.5 cm LVPWd 1.7 cm LVPWs 1.8 cm IVS/LVPW 1.0 FS 5.2 % EDV(Teich) 166.0 ml ESV(Teich) 146.7 ml EF(Teich) 11.6 % EDV(cubed) 194.3 ml ESV(cubed) 165.3 ml EF(cubed) 14.9 % % IVS thick 1.8 % % LVPW thick 8.5 % LV mass(C)d 493.6 grams LV mass(C)dI 179.8 grams/m\S\2 LV mass(C)s 490.8 grams LV mass(C)sI 178.8 grams/m\S\2 SV(Teich) 19.3 ml SI(Teich) 7.0 ml/m\S\2 SV(cubed) 29.0 ml SI(cubed) 10.6 ml/m\S\2 Ao root diam 2.6 cm Ao root area 5.3 cm\S\2 LA dimension 4.4 cm LA/Ao 1.7 LVOT diam 2.4 cm LVOT area 4.4 cm\S\2 Doppler Measurements and Calculations MV E max crispin 80.9 cm/sec MV A max crispin 100.7 cm/sec MV E/A 0.80 MV P1/2t max crispin 93.1 cm/sec MV P1/2t 78.8 msec MVA(P1/2t) 2.8 cm\S\2 MV dec slope 346.1 cm/sec\S\2 MV dec time 0.25 sec Ao V2 max 120.7 cm/sec Ao max PG 5.8 mmHg Ao max PG (full) 2.1 mmHg MARIA E(V,A) 3.5 cm\S\2 MARIA E(V,D) 3.5 cm\S\2 LV V1 max PG 3.7 mmHg LV V1 max 96.3 cm/sec PA V2 max 103.2 cm/sec PA max PG 4.3 mmHg
--- NOTE | 2017-01-14 12:20 | Pulmonary Consultation ---
History General Date of Service: Jan 14, 2017. Stated Complaint: Acute Respiratory Failure HPI The patient is a 61 year old male who presents to [facility] with complaints of Acute Respiratory Failure. The patient's primary care provider is Azar Khanna M.D.. Mr. Plascencia is a 61 year old male with PMH of hypertension, hyperlipemia, GERD and morbid obesity who presented to [facility] on 01/12/2017 with complaints of worsening shortness of breath, dizziness and midsternal nonradiating chest pain. Patient states that he was in his normal state of health about 6 weeks ago , when he started to have a subjective fever with yellowish productive cough. He saw his PMD, Dr. Azar Khanna who treated him empirically for pneumonia with Z nomi and told him to return if his symptoms did not improve. He returned a week later, with a dry nonproductive hacking cough, worsening dyspnea on exertion and at rest. He was started on a Levoquin, albuterol inhaler and prednisone taper that finished a few days prior to admission. In the ER, his initial VS were T 36.7C. P 96, RR 20, BP 132/81, Pulse 93% on Room air. While in the ER, his SaO2 dropped to 87 %, he was placed on 2L NC and it improved to 94%. Labs were drawn and significant for WBC OF 18, D-dimer of 1210, BNP 23, Troponin within normal limits. CXR as done that showed no cardiopulmonary abnormalities with mild elevation of right hemidiaphragm with bibasilar atelectasis. CTA chest was done which ruled out pulmonary embolism and was read to show bibasilar linear patchy opacities suggestive of subsegmental atelectasis , low lung volumes and heptatic steatosis. CT head showed nonspecific prominence of basilar tip. No acute intracranial findings. EKG showed normal sinus rhythm at [address] depressions noted in later leads. He was admitted to telemetry for shortness of breath and to rule out ACS. He is currently on solumedrol 40 mgq8h down from 60 mg q8h, Ipratropium/Albuterol nebulizer, Propranolol, Lovastatin, Tylenol, Maalox, Ondansetron and Oversol spray. Patient denies any sick contacts or recent travel. 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 He states that he tries to use mask most of the time. He has 3 dogs, several cats and horses at home. He does have some exposure to hay .He has previous exposure to other farm animals, but not recently. He denies symptoms prior to this episode. There are no others at work or at home with similar respiratory symptoms. He denies any known allergies, respiratory infections or childhood asthma. He has history of GERD and denies postnasal drip. He denies any history of nausea, vomiting, diarrhea, constipation or genitourinary symptoms. His states, that he snores a lot during the night and has episodes of witnessed apneas. He has increased weight gain over the last several years. He denies any daytime somnolence or lethargy. He drives at least 2 hours a day for his work and denies any lower extremity edema, rashes or joint pains. Today, patient states he is feeling much better since admission. He is now able to walk around without dyspnea on exertion and his cough has subsided. He is saturating 96% on RA, he has been afebrile and is about 500 ml negative since admission. Historian: patient Complaint Status: improved Review of Systems Constitutional: reports: malaise Eyes: reports: as stated in HPI ENT: reports: as stated in HPI Cardiovascular: reports: as stated in HPI Respiratory: reports: as stated in HPI Gastrointestinal: reports: as stated in HPI Genitourinary - Male: reports: as stated in HPI Musculoskeletal: reports: as stated in HPI Integumentary: reports: as stated in HPI Neurologic: reports: as stated in HPI Psychiatric: reports: as stated in HPI Endocrine: as stated in HPI Hematologic / Lymphatic: as stated in HPI Allergic / Immunologic: as stated in HPI Past Medical History Past Medical History: HTN, HLD, GERD, morbid obesity Past Surgical History: Right total knee replacement 07/2016 Family History Mother in 60s from lung cancer Father from lung cancer and alcoholic liver disease He had 13 siblings. Five are still livingwith lung cancer s/p resection, DM-2. Others are fromMVA, homicide x2, [place], Asphyxiation , and myocardial infarction. Social History Lives with . Has previous history of tobacco use . He smoked about ppd for 5 years, quit in the 70s. He chewed tobacco for several years after that. He denies alcohol or illicit drug use. Hx Tobacco Use In Past Year?: No Smoking Status: Former Smoker (quit smoking 40 years ago) Marital status: Housing status: lives with significant other Occupational Status: employed Immunizations History of Influenza Vaccine: Unknown History of Tetanus Vaccine?: Unknown History of Pneumococcal: No History of Hepatitis B Vaccine: Unknown History of MDRO History of MDRO: No Allergies Coded Allergies: Enoxaparin (Verified Adverse Reaction, Intermediate, "BROKE OUT IN SWEAT" , 01/12/17) Current Medications Reported Home Medications Medications Dose Route/Sig Max Daily Dose Days Date Category Inderal La (Propranolol HCl) 60 Mg Capcr 60 Mg PO DAILY 01/12/17 Reported Omeprazole 20 Mg Tab 40 Mg PO DAILY 90 01/12/17 Reported Mevacor (Lovastatin) 20 Mg Tab 20 Mg PO HS 01/12/17 Reported Hemphill-3 (Fish Oil) 1 Ea Cap 1 Cap PO DAILY 01/12/17 Reported Physical Physical Exam Vital Signs: Date Time Temp Pulse Resp B/P (MAP) Pulse Ox O2 Delivery O2 Flow Rate FiO2 01/14/17 08:00 Room Air 01/14/17 07:15 84 14 91 Nasal Cannula 2.0 01/14/17 07:06 36.4 65 18 132/84 (100) 91 Room Air 01/14/17 04:00 Room Air 90.0 01/14/17 03:58 36.7 85 17 121/74 (90) 90 Room Air 01/14/17 00:00 Room Air 94.0 01/13/17 23:58 36.5 84 18 113/67 (82) 94 Nasal Cannula 2.0 01/13/17 20:54 77 16 91 Nasal Cannula 2.0 01/13/17 20:00 Room Air 92.0 01/13/17 19:04 36.5 87 24 135/78 (97) 92 Room Air 01/13/17 18:22 36.3 90 16 142/88 (106) 94 Nasal Cannula 2.0 01/13/17 16:00 36.5 90 20 120/80 (93) 91 Nasal Cannula 2.0 01/13/17 16:00 91 Nasal Cannula 2.0 01/13/17 15:24 88 16 91 Nasal Cannula 2.0 01/13/17 14:00 92 16 01/13/17 13:12 36.5 94 14 131/84 (100) 92 Nasal Cannula 2.0 01/13/17 12:00 98 19 01/13/17 12:00 91 Nasal Cannula 2.0 General Appearance: WELL-APPEARING, WD/WN, NO APPARENT DISTRESS, obese Head: NORMOCEPHALIC, ATRAUMATIC Eyes: PERRLA, NO DISCHARGE, EOMI, SCLERAE NORMAL, CONJUNCTIVAE NORMAL ENT: NORMAL MOUTH EXAM, NORMAL THROAT EXAM (Mallampati IV) Neck: NORMAL RANGE OF MOTION, NO TENDERNESS, TRACHEA MIDLINE, NO STRIDOR, SUPPLE, NO THYROMEGALY Respiratory: BREATH SOUNDS NORMAL, CLEAR TO AUSCULTATION, NO RESPIRATORY DISTRESS, NO TENDERNESS Cardiovasular: REGULAR RATE/RHYTHM, NORMAL S1S2, NO M/G/R, NORMAL PERIPHERAL PULSES Abdomen: NON TENDER, NORMAL BOWEL SOUNDS, NO REBOUND, NO GUARDING Genitourinary - Male: EXTERNAL GENITALIA NORMAL Back: NORMAL INSPECTION Upper Extremities: NO EDEMA Lower Extremities: NO EDEMA Pulses: dorsalis pedis (R) (2+), dorsalis pedis (L) (2+) Neuro: ALERT, ORIENTED x 3, NORMAL MOTOR EXAM, NORMAL SENSATION, NORMAL CEREBELLAR EXAM, NORMAL SPEECH, NORMAL GAIT, NORMAL MEMORY Psychiatric: NORMAL AFFECT Diagnostics Labs Results Past 24 Hours Test 01/14/17 05:29 Range/Units White Blood Count 20.41 4.8-10.8 K/uL Red Blood Count 4.75 4.7-6.1 M/uL Hemoglobin 14.3 14.0-18.0 g/dL Hematocrit 41.6 42-52 % Mean Corpuscular Volume 87.6 80-100 fL Mean Corpuscular Hemoglobin 30.1 25-34 pg Mean Corpuscular Hemoglobin Concent 34.4 32-36 g/dl Platelet Count 262 130-400 K/uL Mean Platelet Volume 10.5 7.4-10.4 fL Neutrophils (%) (Auto) 83.9 % Lymphocytes (%) (Auto) 8.7 % Monocytes (%) (Auto) 6.9 % Eosinophils (%) (Auto) 0.0 % Basophils (%) (Auto) 0.0 % Neutrophils # (Auto) 17.11 1.4-6.5 K/uL Lymphocytes # (Auto) 1.78 1.2-3.4 K/uL Monocytes # (Auto) 1.40 0.11-0.59 K/uL Eosinophils # (Auto) 0.00 0-0.5 K/uL Basophils # (Auto) 0.01 0-0.2 K/uL RDW Standard Deviation 45.6 36.4-46.3 fL RDW Coefficient of Variation 14.2 11.5-14.5 % Immature Granulocyte % (Auto) 0.5 % Immature Granulocyte # (Auto) 0.11 0.00-0.02 K/uL Sodium Level 141 136-145 mmol/L Potassium Level 4.1 3.5-5.1 mmol/L Chloride Level 107 98-107 mmol/L Carbon Dioxide Level 26 21-32 mmol/L Anion Gap 8.0 3-11 mmol/L Blood Urea Nitrogen 28 7-18 mg/dl Creatinine 1.10 0.60-1.40 mg/dl Est Creatinine Clear Calc Drug Dose 113.7 ml/min Estimated GFR () 84.1 Estimated GFR (Non- 72.6 BUN/Creatinine Ratio 25.5 10-20 Random Glucose 199 70-99 mg/dl Calcium Level 8.7 8.5-10.1 mg/dl Magnesium Level 2.4 1.8-2.4 mg/dl Diagnostic Radiology CT Chest 01/12/2017 IMPRESSION: 1. No evidence for pulmonary embolus with limitations as described above. 2. A few bibasilar linear and patchy densities. This favors subsegmental atelectasis. 3. Hepatic steatosis. CT head 01/12/2017 IMPRESSION: 1. Minor nonspecific prominence of the basilar tip. No acute intracranial findings. CXR 01/12/2017 FINDINGS: An AP, portable, upright chest radiograph is obtained. No prior studies are available for comparison at the time of dictation. The examination is degraded by portable technique and patient rotation. The cardiomediastinal silhouette is unremarkable. There is mild elevation of the right hemidiaphragm and bibasilar atelectasis. The lungs and pleural spaces are otherwise clear. No pneumothorax is seen. The bony thorax is grossly intact. IMPRESSION: No acute cardiopulmonary abnormality. Impression Assessment and Plan 61 year old male who presented with worsening dyspnea at rest, cough and hypoxia. Patient symptoms may represent an infectious vs inflammatory etiology. He does have occupational exposures that do put him at risk for reactive airway disease. His CT scan upon my review does appear to have a ground glass mosaic type pattern. This could be suggestive of organizing pneumonia or hypersensitivity pneumonitis, both of these entities are steroid responsive. This can also be seen in CHF, however his BNP is normal. TTE is pending. He has no clinical signs of overload. Upon my history and examination today, his clinical picture appears to have improved improved significantly from corticosteroids. He no longer is coughing and shortness of breath has resolved. Recommendations Continue with steroid taper over one month. I would start an inhaled corticosteroid of qVar one puff BID and continue with albuterol prn Would send ESR, CRP, ANCA, RAISA, RF to rule of rhematological disorders He should follow up with pulmonary as an outpatient and have a full PFT to evaluate for obstructive and restrictive pattern I explained to him that he should have a log book of symptoms and possible exposures and try to avoid them if at all possible. If his symptoms do no resolve a bronchoscopy with BAL is warranted to rule out infectious etiology as well as open lung biopsy as a more definitive diagnosis. TTE is pending at the current time. He should have a 6 MWT as well. Patient has requested incentive spirometry. I encourage weight loss and healthy living habits as well. A sleep study can also be done as an outpatient. I appreciate the consult. Feel free to contact me if you have any other questions or concerns.
[2017-01-14] MEDS ORDERED: ALBUTEROL HFA 8 GM INHALER INH PRN (12:30)
[2017-01-14 13:29] LABS: C-REACTIVE PROTEIN 2.59 mg/dl (0-0.29); RHEUMATOID FACTOR < 10.0 U/mL (0-15)
[2017-01-14] MEDS ORDERED: IPRA1AER2 INH (15:04)
[2017-01-14] MEDS ORDERED: PRD20 PO (15:04)
[2017-01-14] MEDS ORDERED: QVRINH40 INH (15:05)
--- NOTE | 2017-01-14 15:43 | Discharge Instructions ---
Discharge Instructions Date of Service Jan 14, 2017. Admission Reason for Admission: Acute Respiratory Failure Discharge Discharge Diagnosis / Problem: worsening dyspnea at rest etiology unknown Discharge Goals Goal(s): Decrease discomfort, Improve function, Increase independence, Improve disease control, Improve nutritional status, Learn about illness, Diagnostic testing, Therapeutic intervention, Screening, Prevent Disease Progression Activity Recommendations Activity Limitations: resume your previous activity . Instructions / Follow-Up Instructions / Follow-Up you was admitted with worsening dyspnea at rest, cough and hypoxia. you do have occupational exposures that do put you at risk for reactive airway disease. Pulmonagist saw you , we are having steroid tapering we have started inhaled corticosteroid of qVar one puff BID and continue with albuterol prn we have sent ESR, CRP, ANCA, RAISA, RF to rule of rhematological disorders, you need to follow up with pulmonary for these results you should follow up with pulmonary as an outpatient and have a full PFT to evaluate for obstructive and restrictive pattern 2 step was normal , do not need [place] O2 to home now - you need to follow up with your primary care physician in 1 week, - you need to follow up with your subspecialist in 7-10 days - take medication as instructed, never overdose or any misuse, or take with alcohol, because misuse of medicine may cause organ damage or , call your primary care physician if have questions of medicaitons. - call your primary care physician OR go to local emergency room if has any fever/chill, chest pain, shortness of breathing, nausea/vomiting/abdominal pain , facial droop/slurry speech/local weakness, or if has any questions. - fall precaution - diet as instructed - you should understand that it is important to follow up the above instruction , and "not following the above instruction" may cause delayed or missed care of your medical conditions which may cause permanent organ damage and even . Current Hospital Diet Patient's current hospital diet: AHA Diet (Heart Healthy) Discharge Diet Recommended Diet: AHA Diet (Heart Healthy) Procedures Procedures Performed: no Pending Studies Studies pending at discharge: no Laboratory Results Hemoglobin A1c Test 11/12/16 07:03 Range/Units Estimated Average Glucose 134 mg/dl Hemoglobin A1c 6.3 H 4.5-5.6 % Lipid Panel Test 11/12/16 07:03 Range/Units Triglycerides Level 239 H 0-150 mg/dl Cholesterol Level 176 0-200 mg/dl HDL Cholesterol 42 mg/dl Cholesterol/HDL Ratio 4.2 LDL Cholesterol, Calculated 86 mg/dl Medical Emergencies . Who to Call and When: Medical Emergencies: If at any time you feel your situation is an emergency, please call 911 immediately. . Non-Emergent Contact Non-Emergency issues call your: Primary Care Provider, Pathology Manager . . "Provider Documentation" section prepared by Marcellus Morfin. . VTE Core Measure Inpt VTE Proph given/why not?: Enoxaparin (Lovenox)SQ
--- NOTE | 2017-01-14 16:00 | Discharge Summary ---
Discharge Summary Date of Service Jan 14, 2017. Discharge Summary Admission Date: Jan 12, 2017 at 14:04 Discharge Date: Jan 14, 2017 Principal Diagnosis: poosible have reactive airway disease. Problems/Secondary Diagnoses: possible SCOTT Immunizations: Have You Had Influenza Vaccine: Unknown History of Tetanus Vaccine?: Unknown History of Pneumococcal: No History of Hepatitis B Vaccine: Unknown Procedures: no Consultations: Stamping Die Try Out Worker Medication Reconciliation New Medications: Ipratropium-Albuterol (Combivent Respimat) 1 Aer Aer 1 PUFFS INH QID for 14 Days, #1 INH Prednisone (Prednisone) 20 Mg Tab 40 MG PO BID for 24 Days, #45 40mg po bid for 6 days then 20mg po bid for 6 days then 20mg po daily for 6 days then 10mg po daily for 6 days total 45 tabs then stop Beclomethasone Dip (Qvar) 120 Puffs/4800 Mcg Aers 1 PUFFS INH BID for 14 Days, #1 Continued Medications: Fish Oil ([place]-3) 1 Ea Cap 1 CAP PO DAILY, CAP Lovastatin (Mevacor) 20 Mg Tab 20 MG PO HS, TAB Omeprazole (Omeprazole) 20 Mg Tab 40 MG PO DAILY for 90 Days, #180 TAB 3 Refills Propranolol La (Inderal La) 60 Mg Capcr 60 MG PO DAILY, CAP Discharge Exam Doing okay, no more difficulty breathing, no more dyspnea on exertion Review of Systems: Constitutional: No fever, No chills, No sweats, No weight loss, No weakness , No fatigue, No problem reported ENT: No hearing loss, No unusual epistaxis, No nasal symptoms, No sore throat, No tinnitus, No dental problems, No trouble swallowing, No problem reported Respiratory: No cough, No sputum, No wheezing, No shortness of breath, No dyspnea on exertion, No dyspnea at rest, No hemoptysis, No problem reported Cardiovascular: No chest pain, No orthopnea, No PND, No edema, No claudication, No palpitations, No problem reported Abdomen: No pain, No nausea, No vomiting, No diarrhea, No constipation, No GI bleeding, No problem reported Musculoskeletal: No joint pain, No muscle pain, No swelling, No calf pain, No problem reported Genitourinary - Male: No hematuria, No dysuria, No urinary frequency, No urinary urgency, No urinary hesitancy, No urinary retention, No urinary incontinence, No penile discharge, No lesions, No impotence, No problem reported Neurologic: No memory loss, No paralysis, No weakness, No numbness/tingling , No vertigo, No balance problems, No problem reported Psychiatric: No depression symptoms, No anhedonism, No anxiety, No insomnia , No substance abuse, No problem reported Endocrine: No fatigue, No excessive thirst, No excessive urination, No problem reported Hematologic / Lymphatic: No abnormal bleeding/bruising, No clotting problems , No swollen lymph nodes, No night sweats, No problem reported Integumentary: No rash, No itch, No new/changing skin lesions, No color change, No bleeding, No problem reported Physical Exam: General Appearance: WD/WN, no apparent distress Eyes: normal inspection, PERRL ENT: normal ENT inspection, hearing grossly normal Neck: supple, no adenopathy Respiratory/Chest: chest non-tender, lungs clear, normal breath sounds, no respiratory distress, + decreased breath sounds Cardiovascular: regular rate, rhythm, no edema, no gallop Abdomen / GI: normal bowel sounds, non tender, soft, no organomegaly Extremities: normal inspection, no calf tenderness, normal capillary refill Neurologic/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 Remote history of smoking did report has snoring as needed need to rule out obstructive sleep apnea For now we will taper down Solu-Medrol, continue nebulizer treatment Request pulmonology consult, possible need to arrange pulmonary function test and sleep study as outpatient, all may be needed and supervisor operations referral for antigen studies Taper oxygen , 2 step normal , pt dose not need [place] o2 when to home Checked TSH was normal 2-D echocardiogram with Dopplers was done, detail see report in below: * 1. Severely technically limited despite use of definity ultrasound contrast. * 2. Borderline dilated LV with grossly normal LV function. LVEF 50-55%. Cannot exclude regional wall motion abnormalities. * 3. Normal RV size and function. * 4. No apparent significant valvular pathology. * 5. No prior studies for comparison. plumonary saw pt: possible worsening dyspnea at rest, cough and hypoxia secondary to occupational exposures that do put you at risk for reactive airway disease. 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 Hypertension , is presently on propranolol extended release 60 mg by mouth daily , but may need to be changed to a more selective beta jaylin such as metoprolol tartrate Dyslipidemia, continue current medication GI prophylaxis DVT prophylaxis, SCD, no heparin per duct because of allergic to Lovenox Instructions / Follow-Up you was admitted with worsening dyspnea at rest, cough and hypoxia. you do have occupational exposures that do put you at risk for reactive airway disease. Pulmonagist saw you , we are having steroid tapering we have started inhaled corticosteroid of qVar one puff BID and continue with albuterol prn we have sent ESR, CRP, ANCA, RAISA, RF to rule of rhematological disorders, you need to follow up with pulmonary for these results you should follow up with pulmonary as an outpatient and have a full PFT to evaluate for obstructive and restrictive pattern 2 step was normal , do not need [place] O2 to home now - you need to follow up with your primary care physician in 1 week, - you need to follow up with your subspecialist in 7-10 days - take medication as instructed, never overdose or any misuse, or take with alcohol, because misuse of medicine may cause organ damage or , call your primary care physician if have questions of medicaitons. - call your primary care physician OR go to local emergency room if has any fever/chill, chest pain, shortness of breathing, nausea/vomiting/abdominal pain , facial droop/slurry speech/local weakness, or if has any questions. - fall precaution - diet as instructed - you should understand that it is important to follow up the above instruction , and "not following the above instruction" may cause delayed or missed care of your medical conditions which may cause permanent organ damage and even . Total Time Spent: Greater than 30 minutes This includes examination of the patient, discharge planning, medication reconciliation, and communication with other providers. Discharge Instructions Please refer to the electronic Patient Visit Report (Discharge Instructions) for additional information. Additional Copies To Harry Sharma DO; Azar Khanna M.D.
[2017-01-14] MEDS ORDERED: BECLOMETHASONE HFA 40 MCG INHALER INH SCH (21:00)
== END 2017-01-14 17:00 | disposition home or self-care (01) ==
LOC: C.EDB 09:11 → C.MSICU 14:04 → ENRESERV 14:39 → C.2T 01-13 18:13
PROVIDERS: ADMIT Hospitalist; ATTEND Hospitalist
DX: J96.01 Acute respiratory failure with hypoxia (principal); R06.02 Shortness of breath; I10 Essential (primary) hypertension; K21.9 Gastro-esophageal reflux disease without esophagitis; Z87.891 Personal history of nicotine dependence; E78.5 Hyperlipidemia, unspecified; E66.01 Morbid (severe) obesity due to excess calories; Z96.651 Presence of right artificial knee joint; Z80.1 Family history of malignant neoplasm of trachea, bronchus and lung; Z82.49 Family history of ischemic heart disease and other diseases of the circulatory system; Z83.3 Family history of diabetes mellitus

== ENCOUNTER → 2017-01-17 | Outpatient (CLI) | payer BC ==
[2017-01-20 14:33] LABS: BORDETELLA PERTUSSIS SOURCE Nasal Swab
== END | disposition home or self-care (01) ==
LOC: C.LABMFLN 08:41
PROVIDERS: ATTEND Family Medicine
DX: J44.9 Chronic obstructive pulmonary disease, unspecified (principal); J96.00 Acute respiratory failure, unspecified whether with hypoxia or hypercapnia

== ENCOUNTER → 2017-02-24 | Outpatient (CLI) | payer BC ==
[~2017-02-24] MED LIST changes: -IPRA1AER2 INH
[2017-02-24 13:08] LABS: BASO % 0.5 %; BASO ABS # 0.03 K/uL (0-0.2); COMPLETE YES; EOS % 1.5 %; HEMATOCRIT 43.3 % (42-52); IG% 0.5 %; LYMPH % 46.3 %; LYMPH ABS # 2.79 K/uL (1.2-3.4); MEAN CELL VOLUME 88.4 fL (80-100); MEAN CORPUSCULAR HGB CONC 33.9 g/dl (32-36); MEAN PLATELET VOLUME 10.1 fL (7.4-10.4); MONO % 13.1 %; NEUT % 38.1 %; PLATELET COUNT 241 K/uL (130-400); WHITE BLOOD COUNT 6.03 K/uL (4.8-10.8)
== END | disposition home or self-care (01) ==
LOC: C.LABMFLN 08:37
PROVIDERS: ATTEND Family Medicine
DX: J96.00 Acute respiratory failure, unspecified whether with hypoxia or hypercapnia (principal); J44.9 Chronic obstructive pulmonary disease, unspecified

== ENCOUNTER → 2017-05-17 | Outpatient (CLI) | payer BC ==
[2017-05-17 13:14] LABS: ESTIMATED AVERAGE GLUCOSE 128 mg/dl; HA1C FLAG Normal (Normal)
[2017-05-17 13:27] LABS: ALT/SGPT 32 U/L (12-78); BLOOD UREA NITROGEN 18 mg/dl (7-18); BUN/CREATININE RATIO 18.2 (10-20); CALCIUM 8.9 mg/dl (8.5-10.1); CARBON DIOXIDE 27 mmol/L (21-32); CHLORIDE 107 mmol/L (98-107); CHOLESTEROL 160 mg/dl (0-200); CREATININE 0.98 mg/dl (0.60-1.40); GLUCOSE 114 mg/dl (70-99); POTASSIUM 3.9 mmol/L (3.5-5.1); SODIUM 141 mmol/L (136-145)
[2017-05-17 13:37] LABS: ALB/GLOB RATIO 1.3 (0.9-2); ALKALINE PHOSPHATASE 55 U/L (45-117); AST/SGOT 19 U/L (15-37); CHOLESTEROL/HDL RATIO 4.2; HDL CHOLESTEROL 38 mg/dl; LDL CHOLESTEROL CALCULATED 81 mg/dl; TRIGLYCERIDES 204 mg/dl (0-150); VERY LOW DENSITY LIPOPROT CALC 41 mg/dl
== END | disposition home or self-care (01) ==
LOC: C.LABMFLN 07:01
PROVIDERS: ATTEND Family Medicine
DX: E78.00 Pure hypercholesterolemia, unspecified (principal); I10 Essential (primary) hypertension; R73.03 Prediabetes

== ENCOUNTER → 2017-09-19 | Outpatient (CLI) | payer BC ==
[2017-09-19 12:53] LABS: BASO % 0.5 %; BASO ABS # 0.03 K/uL (0-0.2); EOS % 2.3 %; EOS ABS # 0.13 K/uL (0-0.5); HEMATOCRIT 45.1 % (42-52); HEMOGLOBIN 15.5 g/dL (14.0-18.0); IG# 0.01 K/uL (0.00-0.02); LYMPH % 37.4 %; LYMPH ABS # 2.16 K/uL (1.2-3.4); MEAN CELL VOLUME 87.4 fL (80-100); MEAN CORPUSCULAR HGB CONC 34.4 g/dl (32-36); MEAN PLATELET VOLUME 10.4 fL (7.4-10.4); MONO % 12.8 %; MONO ABS # 0.74 K/uL (0.11-0.59); NEUT % 46.8 %; PLATELET COUNT 246 K/uL (130-400); RED CELL DISTRIBUTION WIDTH CV 13.7 % (11.5-14.5); RED CELL DISTRIBUTION WIDTH SD 43.9 fL (36.4-46.3); WHITE BLOOD COUNT 5.77 K/uL (4.8-10.8)
[2017-09-19 13:46] LABS: HEMOGLOBIN A1C 6.3 % (4.5-5.6)
== END | disposition home or self-care (01) ==
LOC: C.LABMFLN 07:38
PROVIDERS: ATTEND Family Medicine
DX: R73.09 Other abnormal glucose (principal); R05 Cough